=== PATIENT | female | born 1995 ===

== ENCOUNTER → 2017-08-10 | Emergency (ER) | payer OTHER ==
[~2017-08-10] VITALS: Ht 165.1 cm; Wt 80.3 kg
== END | disposition home or self-care (01) ==
LOC: ER 14:52
DX: Z34.01 Encounter for supervision of normal first pregnancy, first trimester (principal); R10.2 Pelvic and perineal pain

== ENCOUNTER 2019-05-24 13:49 | Outpatient (CLI) | payer OTHER ==
[2019-05-24] MEDS ORDERED: PRENATABS RX T1 EACH PO (13:55)
[2019-05-24] MEDS ORDERED: FOLIC ACID20 MG (13:56)
== END 2019-05-25 22:31 | disposition home or self-care (01) ==
LOC: OBS/DEL 13:49
DX: O26.893 Other specified pregnancy related conditions, third trimester (principal); O21.8 Other vomiting complicating pregnancy